=== PATIENT | female | born 1960 | race Caucasian/White ===

== ENCOUNTER → 2016-08-08 | Outpatient (CLI) | payer BC ==
[~2016-08-08] MED LIST: ACTIVELLA PO; ADVIN10/60 INH; ADVIN10050 INH; ALBUAER2 INH; ALLGDUNK; ASCA500 PO; CEPH500C PO; CYAN100020 SL; ERGO500037 PO; FLUT0.15 NAE; IBUP-103 PO; LRT5 PO; MONT1TAB3 PO; MULT-506 PO; PRED20TA PO; PRLSR20 PO; PROB1TAB16 PO; PROGEST; VNTHFA/IN INH; VTMB12UNK
--- NOTE | 2016-08-08 12:25 | MAMMOGRAPHY REPORT ---
BILATERAL DIGITAL SCREENING MAMMOGRAM TOMOSYNTHESIS WITH CAD: 08/08/2016 TECHNIQUE: Breast tomosynthesis in addition to standard 2D mammography was performed. Current study was also evaluated with a Computer Aided Detection (CAD) system. COMPARISON: Comparison is made to exams dated: 08/06/2015 mammogram, 08/04/2014 mammogram, 08/08/2009 mammogram, 08/19/2010 mammogram, 06/30/2013 mammogram, and 06/18/2012 mammogram - [facility]. BREAST COMPOSITION: The tissue of both breasts is heterogeneously dense, which may obscure small ma sses. FINDINGS: No suspicious masses, calcifications, or areas of architectural distortion are noted in e ither breast. There has been no significant interval change compared to prior exams. IMPRESSION: ACR BI-RADS CATEGORY 1: NEGATIVE There is no mammographic evidence of malignancy. A 1 year screening mammogram is recommended. The p atient will receive written notification of the results. Approximately 10% of breast cancers are not detected with mammography. A negative mammographic repor t should not delay biopsy if a clinically suggestive mass is present. Mana Suero M.D. /:08/08/2016 12:10:53 Public Relations Account Supervisor: Madison SMALLWOOD)(Lisa), [facility] letter sent: Normal 1/2 BI-RADS Code: ACR BI-RADS Category 1: Negative
== END | disposition home or self-care (01) ==
LOC: C.MAMM 10:23
PROVIDERS: ATTEND Obstetrics & Gynecology
DX: Z12.31 Encounter for screening mammogram for malignant neoplasm of breast (principal)

== ENCOUNTER → 2016-10-06 | Day surgery (SDC) | payer BC ==
[2016-09-26 13:21] VITALS: Ht 174.6 cm; Wt 84.1 kg
[~2016-10-06] VITALS: Ht 174.6 cm; Wt 84.1 kg
[~2016-10-06] MED LIST changes: -ACTIVELLA PO; -ALLGDUNK; -ASCA500 PO; -LRT5 PO; +MIDAZOLAM HCL 1 MG/ML 2ML VIAL ONE; -MULT-506 PO; +ONDANSETRON INJ 2 MG/ML 2 ML VIAL ONE; -PRLSR20 PO; -PROGEST; +PROPOFOL IV EMULSION 10 MG/ML 20 ML VIAL IV ONE; -VTMB12UNK
--- NOTE | 2016-10-06 12:48 | Endo History and Physical ---
History & Physical Date of Service: Oct 06, 2016. Chief Complaint: Hx of polyps Referring Physician: Dr Gutierrez History of Present Illness For colonoscopy Past Surgical History Hx Cardiac Surgery: No Hx Internal Defibrillator: No Hx Pacemaker: No Hx Abdominal Surgery: Yes (TUBAL LIGATION) Hx of Implantable Prosthesis: No Hx Post-Op Nausea and Vomiting: No Hx Cancer Surgery: No Hx Thoracic Surgery: No Hx Orthopedic: Yes (C3-4 FUSION, C3-7 FUSION (LIMITED ROM), RT ELBOW SURGERY, RT SHOULDER) Hx Urinary Tract Surgery: No Family History Colon CA Social History Smoking Status: Current Every Day Smoker Hx Substance Use: No Hx Alcohol Use: Yes ("A COUPLE BEERS/DAY") Allergies Coded Allergies: Sulfa Drugs (Verified Allergy, Mild, RASH AND DIARRHEA, 09/26/16) BEE STING (Verified Allergy, Unknown, ANAPHYLAXIS, 09/26/16) Eggs or Egg-derived Products (Verified Allergy, Unknown, GI UPSET, 09/26/16 ) Latex1 -Allergic Contact Dermititis (Verified Allergy, Unknown, RASH, HIVES, ITCHING, 09/26/16) Lidocaine (Verified Allergy, Unknown, ANAPHYLAXIS, 09/26/16) Opioid Analgesics (Verified Allergy, Unknown, "SENDS ME INTO A NASTY LAND ", 09/26/16) Penicillins (Verified Allergy, Unknown, VAGINAL YEAST INFECTION, 09/26/16) Venlafaxine (Verified Allergy, Unknown, DIARRHEA, 09/26/16) Codeine (Verified Adverse Reaction, Mild, N/V, 09/26/16) Uncoded Allergies: MELONS (Allergy, Unknown, MOUTH INFLAMMATION AND ANAPHYLAXIS, 09/26/16) PEPPERCORN (Allergy, Unknown, ANAPHYLAXIS AND GUMS BLEED, 09/26/16) RAW VEGGIES (Allergy, Unknown, MOUTH INFLAMMATION AND ANAPHYLAXIS, 09/26/16) Current Medications Reported Home Medications Medications Dose Route/Sig Max Daily Dose Days Date Category Singulair (Montelukast Sodium) 10 Mg Tab 10 Mg PO DAILY PRN 09/26/16 Reported Advil (Ibuprofen) 200 Mg Tab 400-600 Mg PO Q6H PRN 09/26/16 Reported Flonase Allergy Relief (Fluticasone Propionate (Nasal)) 50 Mcg/Act Spr 2 [place] EZEKIEL DAILY PRN 09/26/16 Reported Vitamin B12 (Cyanocobalamin) 1,000 Mcg Tab 2 Mg SL BID 09/26/16 Reported Vitamin D 40915 Unit (Ergocalciferol) 50,000 Unit Cap 50,000 Unit PO [id number] 09/26/16 Reported Probiotic (Probiotic Product) 1 Tab Tab 1 Tab PO TID 09/26/16 Reported Ventolin (Albuterol) Inh 2 Puffs INH Q4-6H PRN 07/07/08 Reported Advair Diskus 100/50 Mcg * (Salmeterol Xinafoate/Fluticasone) Aerp 1 Puff INH QAM 07/07/08 Reported Vital Signs Weight (Kilograms): 84.09 Height (Feet): 5 Height (Inches): 8.75 Physical Exam General Appearance: WD/WN, + pertinent finding (Scar on the neck) Respiratory/Chest: Respiratory effort: no dyspnea Cardiovascular: Heart Auscultation: RRR Abdomen: Inspection & Palpation: soft (Hx of polyps for colonoscopy)
[2016-10-06 13:04] VITALS: TEMP 37.3
--- NOTE | 2016-10-06 13:28 | Discharge Instructions ---
Endoscopy Patient Instructions Date / Procedure(s) Performed Oct 06, 2016. Colonoscopy Allergy Information Coded Allergies: Sulfa Drugs (Verified Allergy, Mild, RASH AND DIARRHEA, 09/26/16) BEE STING (Verified Allergy, Unknown, ANAPHYLAXIS, 09/26/16) Eggs or Egg-derived Products (Verified Allergy, Unknown, GI UPSET, 09/26/16 ) Latex1 -Allergic Contact Dermititis (Verified Allergy, Unknown, RASH, HIVES, ITCHING, 09/26/16) Lidocaine (Verified Allergy, Unknown, ANAPHYLAXIS, 09/26/16) Opioid Analgesics (Verified Allergy, Unknown, "SENDS ME INTO A NASTY LAND ", 09/26/16) Penicillins (Verified Allergy, Unknown, VAGINAL YEAST INFECTION, 09/26/16) Venlafaxine (Verified Allergy, Unknown, DIARRHEA, 09/26/16) Codeine (Verified Adverse Reaction, Mild, N/V, 09/26/16) Uncoded Allergies: MELONS (Allergy, Unknown, MOUTH INFLAMMATION AND ANAPHYLAXIS, 09/26/16) PEPPERCORN (Allergy, Unknown, ANAPHYLAXIS AND GUMS BLEED, 09/26/16) RAW VEGGIES (Allergy, Unknown, MOUTH INFLAMMATION AND ANAPHYLAXIS, 09/26/16) Discharge Date / Findings Oct 06, 2016. Hemorrhoids Medication Instructions Restart Stopped Medication(s): resume meds Reported Home Medications Medications Dose Route/Sig Max Daily Dose Days Date Category Singulair (Montelukast Sodium) 10 Mg Tab 10 Mg PO DAILY PRN 09/26/16 Reported Advil (Ibuprofen) 200 Mg Tab 400-600 Mg PO Q6H PRN 09/26/16 Reported Flonase Allergy Relief (Fluticasone Propionate (Nasal)) 50 Mcg/Act Spr 2 [place] EZEKIEL DAILY PRN 09/26/16 Reported Vitamin B12 (Cyanocobalamin) 1,000 Mcg Tab 2 Mg SL BID 09/26/16 Reported Vitamin D 37407 Unit (Ergocalciferol) 50,000 Unit Cap 50,000 Unit PO [id number] 09/26/16 Reported Probiotic (Probiotic Product) 1 Tab Tab 1 Tab PO TID 09/26/16 Reported Ventolin (Albuterol) Inh 2 Puffs INH Q4-6H PRN 07/07/08 Reported Advair Diskus 100/50 Mcg * (Salmeterol Xinafoate/Fluticasone) Aerp 1 Puff INH QAM 07/07/08 Reported Provider Instructions Activity Restrictions - No exercising or heavy lifting for 24 hours. - Do not drink alcohol the day of the procedure. - Do not drive a car or operate machinery until the day after the procedure. - Do not make any important decisions or sign important papers in 24 hours after the procedure. Following Day: - Return to full activity which may include returning to work/school. Diet Start your diet with liquids and light foods (jello, soup, juice, toast). Then eat your usual diet if not nauseated. Treatment For Common After Affects For mild abdominal pain, bloating, or excessive gas: - Rest - Eat lightly - Lie on right side Follow-Up Information Follow-up with Jeff as scheduled Anesthesia Information What You Should Know You have had a procedure that required some medicine to reduce anxiety and discomfort. This treatment is called moderate sedation. After receiving the treatment, you may be sleepy, but you will be able to breathe on your own. The effects of the treatment may last for several hours. Follow these instructions along with Activity/Diet recommendations noted above: * Do NOT do anything where dizziness or clumsiness would be dangerous. * Rest quietly at home today, then you can be up and about tomorrow. * Have a responsible person stay with you the rest of today. * You may have had an I.V. today. If so, you may take the dressing off later today. Recommendations Call your doctor if: * Trouble breathing * Continuous vomiting for more than 24 hours * Temperature above 101 degrees * Severe abdominal pain or bloating * Pain not relieved by pain medicine ordered * There is increased drainage or redness from any incision * A large amount of rectal bleeding greater than 2-3 tablespoons. (If you had a polyp/s removed or have hemorrhoids, a small amount of blood - from the rectum is to be expected.) * You have any unanswered questions or concerns. IN THE EVENT OF A SERIOUS EMERGENCY, GO TO THE NEAREST EMERGENCY ROOM Your discharge instructions were prepared by provider Zev Kelley. Patient Instructions Signature Page Yazmin Irvin Patient (or Guardian) Signature/Date: I have read and understand the instructions given to me by my caregivers. Caregiver/RN/Doctor Signature/Date: The above-named patient and/or guardian has received patient instructions on this date. + Original Patient Signature Page (only) stays with chart. Please make copy for patient.
--- NOTE | 2016-10-06 13:43 | GI REPORT ---
Procedure Date: 10/06/2016 12:51 PM Procedure: Colonoscopy Indications: Personal history of colonic polyps Medicines: Midazolam 2 mg IV, Zofran 4 mg IV, Propofol total dose 150 mg IV Complications: No immediate complications. Estimated Blood Loss: Estimated blood loss: none. Procedure: Pre-Anesthesia Assessment: - Prior to the procedure, a History and Physical was performed, and patient medications, allergies and sensitivities were reviewed. The patient's tolerance of previous anesthesia was reviewed. - The risks and benefits of the procedure and the sedation options and risks were discussed with the patient. All questions were answered and informed consent was obtained. After I obtained informed consent, the scope was passed under direct vision. Throughout the procedure, the patient's blood pressure, pulse, and oxygen saturations were monitored continuously. The Scope was introduced through the anus and advanced to the cecum, identified by appendiceal orifice and ileocecal valve. The colonoscopy was performed without difficulty. The patient tolerated the procedure well. The quality of the bowel preparation was excellent. Findings: Non-bleeding internal hemorrhoids were found during endoscopy. The hemorrhoids were mild. Impression: - Non-bleeding internal hemorrhoids. - No specimens collected. Recommendation: - Discharge patient to home (ambulatory). - Continue present medications. - Repeat colonoscopy in 5 years for surveillance. - Return to primary care physician PRN. Zev Kelley M.D. Zev Kelley MD 10/06/2016 1:43:32 PM This report has been signed electronically. Note Initiated On: 10/06/2016 12:51 PM I attest to the content of the Intraoperative Record and orders documented therein, exceptions below
[2016-10-06 14:01] VITALS: BP 113/87; PULSE 72; O2SAT 96
--- NOTE | 2016-10-06 14:05 | Anesthesiology Progress Note ---
Anesthesia Post Op Note Date & Time Oct 06, 2016 at 14:05 Vital Signs Pain Intensity: 0 Vital Signs Past 12 Hours Date Time Temp Pulse Resp B/P Pulse Ox O2 Delivery O2 Flow Rate FiO2 10/06/16 14:01 72 20 113/87 96 Room Air 10/06/16 13:46 74 16 108/68 97 Room Air 10/06/16 13:31 71 16 93/51 96 Room Air 10/06/16 13:04 37.3 75 20 107/68 94 Room Air Notes Mental Status: alert / awake / arousable, participated in evaluation Pt Amnestic to Procedure: Yes Nausea / Vomiting: adequately controlled Pain: adequately controlled Airway Patency, RR, SpO2: stable & adequate BP & HR: stable & adequate Hydration State: stable & adequate Anesthetic Complications: no major complications apparent
== END | disposition home or self-care (01) ==
LOC: C.GI 12:28
PROVIDERS: ATTEND Internal Medicine Gastroenterology
DX: Z86.010 Personal history of colon polyps (principal); K64.8 Other hemorrhoids; J45.909 Unspecified asthma, uncomplicated; Z98.51 Tubal ligation status; Z98.890 Other specified postprocedural states; Z80.0 Family history of malignant neoplasm of digestive organs; F17.200 Nicotine dependence, unspecified, uncomplicated; Z88.2 Allergy status to sulfonamides; Z91.040 Latex allergy status; Z88.0 Allergy status to penicillin; Z88.5 Allergy status to narcotic agent; Z91.012 Allergy to eggs; Z91.018 Allergy to other foods

== ENCOUNTER → 2017-02-16 | Outpatient (CLI) | payer BC ==
[~2017-02-16] MED LIST changes: -MIDAZOLAM HCL 1 MG/ML 2ML VIAL ONE; -ONDANSETRON INJ 2 MG/ML 2 ML VIAL ONE; -PROPOFOL IV EMULSION 10 MG/ML 20 ML VIAL IV ONE
== END | disposition home or self-care (01) ==
LOC: C.LAB1850 08:43
PROVIDERS: ATTEND Internal Medicine Endocrinology, Diabetes & Metabolism
DX: E04.2 Nontoxic multinodular goiter (principal); E55.9 Vitamin D deficiency, unspecified; K21.9 Gastro-esophageal reflux disease without esophagitis; F17.200 Nicotine dependence, unspecified, uncomplicated

== ENCOUNTER 2017-04-12 14:51 | Emergency (ER) | payer BC ==
[~2017-04-12] VITALS: Ht 175.3 cm; Wt 84.0 kg
[~2017-04-12 14:51] MED LIST changes: -ADVIN10050 INH; -CEPH500C PO; -PRED20TA PO; -VNTHFA/IN INH
[2017-04-12 15:02] VITALS: BP 127/90; PULSE 91; TEMP 37; O2SAT 98; Ht 175.3 cm; Wt 84.0 kg
[2017-04-12] MEDS ORDERED: DEXAMETHASONE SOD INJ 10 MG/ML VIAL IM ONE (15:30)
[2017-04-12] MEDS ORDERED: PRED20TA PO (15:35)
[2017-04-12] MEDS ORDERED: CEPH500C PO (15:35)
--- NOTE | 2017-04-12 15:39 | EMERGENCY ROOM VISIT NOTE ---
History First contact with patient: 15:10 Chief Complaint: RASH Stated Complaint: POISON SUNITHA History of Present Illness The patient is a 56 year old female who presents to the Emergency Room with complaints of allergic reaction. The patient was visiting her mother in [place]. She states that her mother's cat was out side and got into poison sunitha. She states that the cat rubbed against her. The patient states she is very sensitive to poison sunitha. The patient states that she has had a rash and swelling since then. She reports crusting lesions to her face, arms and legs. She has been scrubbing off the scabs. She states she also has redness and tearing and a foreign body sensation in the right eye. She has been using over- the-counter allergy eyedrops. The patient does have an EpiPen but did not feel she needed to use it at any point. She does have a sore throat and trouble swallowing but states this is baseline for her. The patient denies any chest pain or trouble breathing. She denies any wheezing. She denies any vomiting. Review of Systems A 10 system review of systems was completed with positives and pertinent negatives listed in the HPI. Past Medical/Surgical History Medical Problems: (1) Asthma (2) Bacterial pneumonia Social History Smoking Status: Never Smoker Alcohol Use: occasionally Marital Status: Housing Status: lives with family Occupation Status: employed Current/Historical Medications Scheduled Cephalexin Monohydrate (Keflex), 500 MG PO QID Cyanocobalamin (Vitamin B12), 2 MG SL BID Ergocalciferol (Vitamin D 76477 Unit), 50,000 UNIT PO [id number] Fluticasone Prop/Salmeterol (Advair Diskus 100/50 Mcg *), 1 PUFF INH QAM Prednisone (Prednisone), 0 PO DAILY Probiotic Product (Probiotic), 1 TAB PO TID Scheduled PRN Albuterol (Ventolin), 2 PUFFS INH Q4-6H PRN for SOB/Wheezing Fluticasone Propionate (Nasal) (Flonase Allergy Relief), 2 SPRAY EZEKIEL DAILY PRN for ALLERGIES Ibuprofen Tab (Advil), 400-600 MG PO Q6H PRN for Pain Montelukast Sodium (Singulair), 10 MG PO DAILY PRN for ALLERGIES Physical Exam Vital Signs Date Time Temp Pulse Resp B/P (MAP) Pulse Ox O2 Delivery O2 Flow Rate FiO2 04/12/17 15:02 37.0 91 18 127/90 98 Room Air Physical Exam VITALS: Vitals are noted on the nurse's note and reviewed by myself. Vital signs stable. GENERAL: This is a 56-year-old female, in no acute distress, nondiaphoretic, well-developed well-nourished. SKIN: There are honey-colored crusted lesions over the chin. There is some in the hairline and the right ear. There are linear vesicular lesions on both arms and a few spots on the legs. There is no tenting of the skin. Capillary reflex less than 2 seconds. HEAD: Normocephalic atraumatic. EARS: External auditory canals clear, tympanic membranes pearly garsia without erythema or effusion bilaterally. EYES: Pupils equal round and reactive to light and accommodation. There is injection and chemosis noted in the right eye. There are no foreign bodies noted. There is no uptake with fluorescein stain. Extraocular movements intact. NOSE: Patent, turbinates without inflammation or discharge. MOUTH: Mucous membranes moist. Tonsils are not enlarged. Pharynx without erythema or exudate. Uvula midline. Airway patent. Tongue does not deviate. NECK: Supple without nuchal rigidity. No lymphadenopathy. No thyromegaly. Cervical spine is nontender. No JVD. HEART: Regular rate and rhythm without murmurs gallops or rubs. LUNGS: Clear to auscultation bilaterally without wheezes, rales or rhonchi. No retractions or accessory muscle use. MUSCULOSKELETAL: No muscle atrophy, erythema, or edema noted. Full range of motion in all extremities. Normal gait. Strength 5/5 throughout. NEURO: Patient was alert and oriented to person place and time. No focal neurological deficits. Medical Decision & Procedures Medications Administered Medications (Trade) Dose Ordered Sig/Jimy Route Start Time Stop Time Status Last Admin Dose Admin Dexamethasone Sodium Phosphate (Decadron Inj) 10 mg NOW ONCE IM 04/12/17 15:30 04/12/17 15:31 DC 04/12/17 15:32 10 MG ED Course The patient was seen and examined. Previous visits were reviewed. The patient appears to have allergic reaction. She does have lesions suggestive of poison sunitha on the bilateral arms and legs. She also has areas on the jaw and chin as well as the hairline. The patient does have injection and chemosis of the right eye. The patient likely has a reaction to poison sunitha. The patient has been scrubbing of the lesions to remove the scabs. I do believe she has a secondary bacterial infection. The patient was given 10 mg IM Decadron and placed on prednisone. She should try antihistamines. She could continue her eyedrops and steroid cream at home. The patient will be placed on Keflex. She should recheck with her family doctor in 24-48 hours if no improvement. She should return to the ER sooner with any worsening symptoms. Medical Decision The differential diagnosis includes impetigo, zoster, allergic reaction, corneal foreign body, corneal abrasion, among others Medication Reconcilliation Current Medication List: was personally reviewed by me Blood Pressure Screening Patient's blood pressure: Normal blood pressure Blood pressure disposition: Did not require urgent referral Impression Primary Impression: Rhus dermatitis Additional Impression: Impetigo Departure Information Dispostion Home / Self-Care Condition GOOD Prescriptions Cephalexin Monohydrate (Keflex) 500 Mg Cap 500 MG PO QID for 7 Days, #28 CAP Prov: Radha Macisa PA-C 04/12/17 Prednisone (Prednisone) 20 Mg Tab 0 PO DAILY, #18 TAB 3 DAILY FOR 3 DAYS, THEN 2 DAILY FOR 3 DAYS, THEN 1 DAILY FOR 3 DAYS. Prov: Radha Macias PA-C 04/12/17 Referrals RV. Simon MD (PCP) Patient Instructions ED Dermatitis Poison Sunitha, Impetigo, My [facility] Additional Instructions Keflex as prescribed, until finished to treat potential secondary bacterial infection Prednisone as prescribed until finished Continue the eye drops Return with any worsening rash, trouble breathing Otherwise, recheck with your family doctor in 24-48 hours Problem Qualifiers
[2017-04-12] MEDS ORDERED: VNTHFA/IN INH (16:15)
[2017-04-12] MEDS ORDERED: ADVIN10050 INH (16:17)
== END 2017-04-12 15:54 | disposition home or self-care (01) ==
LOC: C.EDB 14:52 → C.EDD 15:54
DX: L23.7 Allergic contact dermatitis due to plants, except food (principal); L01.00 Impetigo, unspecified; J45.909 Unspecified asthma, uncomplicated; Z79.899 Other long term (current) drug therapy

== ENCOUNTER → 2017-05-28 | Outpatient (CLI) | payer BC ==
[~2017-05-28] MED LIST changes: -ADVIN10/60 INH; +ADVIN10050 INH; -ALBUAER2 INH; +PRED20TA PO; -PROB1TAB16 PO; +VNTHFA/IN INH
== END | disposition home or self-care (01) ==
LOC: C.PAPS 17:48
PROVIDERS: ATTEND Obstetrics & Gynecology
DX: Z01.419 Encounter for gynecological examination (general) (routine) without abnormal findings (principal)

== ENCOUNTER → 2017-06-22 | Outpatient (CLI) | payer BC ==
--- NOTE | 2017-06-22 11:49 | DIAGNOSTIC IMAGING REPORT ---
L LOWER EXT JOINT WITHOUT CLINICAL HISTORY: 56 years-old Female presenting with LEFT KNEE PAIN, left lateral knee pain, painful when bending, worsening over one month, no history of injury. TECHNIQUE: Multisequence, multiplanar MR imaging of the left knee was performed without the use of intravenous contrast. IV contrast: None. COMPARISON: Correlation made to plain radiographs from 06/10/2017.. FINDINGS: Localizer images: Unremarkable. Focal stippled T2 hyperintense, T1 hypointense subcentimeter lesion centered in the medullary space of the medial tibial plateau. Additional abnormal bone marrow signal is evident along the left medial femoral epicondyle at the origin of the medial collateral ligament, which demonstrates cystic change, possibly degenerative in etiology. Irregularity of the anterior weightbearing portion of the medial femoral condyle with abnormal signal intensity extending over 50% thickness of the cartilage consistent with grade 3 injury. Increased signal intensity in the posterior weightbearing surface of the medial femoral condyle also noted (series 4 image 19). There is also subtle fissuring of the median prominence of the patellar articular cartilage most pronounced superiorly with trace subjacent bony edema (series 4 image 13). Remaining articular surfaces intact. Primarily horizontally oriented linear T2 hyperintense signal intensity consistent with tear in the posterior horn of the lateral meniscus which approaches the tibial articular surface. There may be partial disruption of the meniscocapsular ligaments as expansion of the joint space is suggested along the lateral aspect of the joint, however, no extrusion of the meniscus. Intrasubstance increased signal intensity within the anterior horn of the lateral meniscus likely degenerative. Medial meniscus intact. Anterior and posterior cruciate ligaments intact. Medial collateral ligament intact though minimal thickening of the ligament in the proximal to midportion may be present. Lateral collateral ligament complex including the biceps femoris tendon, fibular collateral ligament, popliteus tendon, and iliotibial band intact. However, increased signal intensity within the origin of the fibular collateral ligament possibly degenerative. Quadriceps and patellar tendons intact. Small knee joint effusion with a prominent popliteal cyst. Normal muscle bulk and signal intensity of the musculature. IMPRESSION: 1. Complex tear of the posterior horn of the lateral meniscus with possible partial disruption of meniscocapsular ligaments. 2. Multifocal articular cartilage injury most prominently in the medial compartment with minimal changes in the patellofemoral compartment as detailed above. 3. Focal stippled T2 hyperintense lesion in the medullary space of the medial tibial plateau may represent a chondroid lesion. 4. Degenerative changes of the origin of the fibular collateral ligament. 5. Small knee joint effusion with a prominent popliteal cyst. Electronically signed by: Jerry Gardner M.D. 06/22/2017 11:48 AM Dictated Date/Time: 06/22/2017 11:37 AM
== END | disposition home or self-care (01) ==
LOC: C.MRIBC 10:35
PROVIDERS: ATTEND Orthopaedic Surgery
DX: M25.562 Pain in left knee (principal)

== ENCOUNTER → 2017-07-10 | Outpatient (CLI) | payer BC ==
[~2017-07-10] MED LIST changes: -PRED20TA PO; +TRAM-10 PO
[2017-07-10 17:40] LABS: BASO % 0.4 %; BASO ABS # 0.03 K/uL (0-0.2); EOS % 2.8 %; EOS ABS # 0.21 K/uL (0-0.5); HEMOGLOBIN 15.4 g/dL (12.0-16.0); IG# 0.01 K/uL (0.00-0.02); LYMPH % 36.7 %; LYMPH ABS # 2.72 K/uL (1.2-3.4); MEAN CELL VOLUME 98.3 fL (80-100); MEAN CORPUSCULAR HEMOGLOBIN 32.9 pg (25-34); MEAN CORPUSCULAR HGB CONC 33.5 g/dl (32-36); MEAN PLATELET VOLUME 9.7 fL (7.4-10.4); MONO % 5.7 %; MONO ABS # 0.42 K/uL (0.11-0.59); NEUT % 54.3 %; NEUT ABS # 4.03 K/uL (1.4-6.5); PLATELET COUNT 277 K/uL (130-400); RED CELL DISTRIBUTION WIDTH CV 12.9 % (11.5-14.5); RED CELL DISTRIBUTION WIDTH SD 45.8 fL (36.4-46.3); WHITE BLOOD COUNT 7.42 K/uL (4.8-10.8)
[2017-07-10 18:05] LABS: POTASSIUM 3.5 mmol/L (3.5-5.1)
== END | disposition home or self-care (01) ==
LOC: C.CPL 16:06
PROVIDERS: ATTEND Orthopaedic Surgery
DX: Z01.818 Encounter for other preprocedural examination (principal); S83.282A Other tear of lateral meniscus, current injury, left knee, initial encounter; X58.XXXA Exposure to other specified factors, initial encounter

== ENCOUNTER → 2017-07-21 | Day surgery (SDC) | payer BC ==
[2017-07-01 12:23] VITALS: Ht 175.3 cm; Wt 81.8 kg
[~2017-07-21] VITALS: Ht 175.3 cm; Wt 81.8 kg
[~2017-07-21] MED LIST changes: +ACETAMINOPHEN 325 MG TAB PO PRN; +ATROPINE SULFATE 0.1 MG/ML 5ML SYR IV PRN; +BUPIVACAINE 0.5 % 5 MG/1 ML PF 10ML VIAL ONE; +CEFAZOLIN 2000MG IV PUSH 10 ML IV SCH; +DEXAMETHASONE SOD INJ 4 MG/ML VIAL ONE; +EpINEphrine INJ 1MG/ML AMP 1 MG/ML AMP ONE; +FENTANYL CITRATE INJ 50 MCG/1 ML 2 ML VIAL IV PRN; +FENTANYL CITRATE INJ 50 MCG/1 ML 2 ML VIAL ONE; +KETOROLAC TROMETHAMINE 30 MG/ML VIAL IV. PRN; +KETOROLAC TROMETHAMINE 30 MG/ML VIAL ONE; +LACTATED RINGER'S 1000ML 1,000 ML IV SCH; +LIDOCAINE HCL 2% 2 ML VIAL (20MG/ML) ONE; +MIDAZOLAM HCL 1 MG/ML 2ML VIAL ONE; +ONDANSETRON INJ 2 MG/ML 2 ML VIAL IV PRN; +ONDANSETRON INJ 2 MG/ML 2 ML VIAL ONE; +PROPOFOL IV EMULSION 10 MG/ML 20 ML VIAL IV ONE; +ROPIVACAINE 0.5% 5 MG/ML 30 ML VIAL ONE; +SODIUM CHLORIDE 0.9% 1000ML 1,000 ML IV SCH; +TRAMADOL HCL 50 MG TAB PO PRN
--- NOTE | 2017-07-21 08:50 | History & Physical Bridge - SC ---
H&P Re-Evaluation Bridge Note: I have examined the patient, reviewed the History & Physical and in the interval since the performance of the History & Physical I have noted the following changes of clinical significance: No changes noted
--- NOTE | 2017-07-21 10:21 | [facility] Post Operative Brief Note ---
Immediate Operative Summary Operative Date Jul 21, 2017. Pre-Operative Diagnosis Left Knee Lateral Meniscus Tear Post-Operative Diagnosis same as pre op Procedure(s) Performed PARTIAL LATERAL MENISECTOMY Surgeon Dr Martino Software Applications Architect Surgeon(s) RANJEET Morocho Estimated Blood Loss 0 Findings ABOVE Specimens none Anesthesia LMA Complication(s) None Disposition Recovery Room / PACU
--- NOTE | 2017-07-21 10:31 | Discharge Instructions-SurgCtr ---
Discharge Instructions Date of Service Jul 21, 2017. Visit Reason for Visit: Left Knee Lateral Meniscus Tear Discharge Discharge Diagnosis / Problem: SAME ABOVE Discharge Goals Goal(s): Decrease discomfort, Improve function Activity Recommendations Activity Limitations: as noted below Lifting Limitations: gradually increase as tolerated Exercise/Sports Limitations: until after follow-up appointment Shower/Bathe: tomorrow Weightbearing Status: Left weightbearing (as tolerated) Anesthesia . Post Anesthesia Instructions: If you have had General Anesthesia or IV Sedation: * Do not drive today. * Resume driving when surgeon permits. * Do not make important decisions or sign legal documents today. * Call surgeon for: 1. Temperature elevations greater than 101 degrees F. 2. Uncontrollable pain. 3. Excessive bleeding. 4. Persistent nausea and vomiting. 5. Medication intolerance (nausea, vomiting or rash). * For nausea and vomiting use only clear liquids such as: tea, soda, bouillon until nausea subsides, then gradually increase diet as tolerated. * If you have any concerns or questions, call your surgeon's office. If physician is unavailable and it is an emergency, call 911 or go to the nearest emergency room. . Instructions / Follow-Up Instructions / Follow-Up MEDICATIONS: * Resume previous medications unless instructed otherwise by your surgeon. * Always take pain medication on a full stomach or with food to avoid upset stomach. * Do not drink alcohol or drive while taking narcotics. * Ibuprofen or Tylenol may be taken if narcotic not needed. SPECIAL CARE INSTRUCTIONS: __ None _X_ Keep extremity elevated and iced x 48 hours; apply ice 20-30 minutes 8-10 times/day. May remove at night. __ Crutches __ May discard when able __ Brace/Post-op shoe __ 24 hrs/day __ Remove at night _X_ Dressing __ Maintain until seen in office, may shower with plastic over site _X_ Remove dressings in 24-48 hours and then may shower _X_ Cover incisions with band-aids after showering __ Do not remove steri-strips Call physician if chills or temperature rises above 102 degrees or pain unrelieved by prescribed pain medications. Office [phone] Diet Recommendations Home Diet: resume previous diet Procedures Procedures Performed: PARTIAL LATERAL MENISECTOMY Pending Studies Studies pending at discharge: no Medical Emergencies . Who to Call and When: Medical Emergencies: If at any time you feel your situation is an emergency, please call 911 immediately. . Non-Emergent Contact Non-Emergency issues call your: Primary Care Provider . . "Provider Documentation" section prepared by Wood Weinberg. .
--- NOTE | 2017-07-21 10:40 | OPERATIVE REPORT ---
DATE OF OPERATION: 07/21/2017 PREOPERATIVE DIAGNOSIS: Lateral meniscus tear left knee. POSTOPERATIVE DIAGNOSIS: Complex tear lateral meniscus, left knee. PROCEDURE: Left knee arthroscopy, partial lateral meniscectomy. SURGEON: Jerry Martino MD. SALES REPRESENTATIVE LIVESTOCK: Wood Weinberg PA-C. ANESTHESIOLOGIST: Alex Pearce MD. ANESTHESIA: LMA. DRAINS: None. COMPLICATIONS: None. CONDITION: The patient tolerated the procedure well and returned to recovery in apparent satisfactory condition. INDICATIONS FOR SURGERY: Yazmin is a 56-year-old female who has had increasing pain in left knee consistent with lateral meniscus tear. Based on history, examination and MRI, elected to go ahead and proceed with surgery. Procedure, expected outcome, side effects, and risks were all explained in detail. DESCRIPTION OF PROCEDURE: The patient was taken to the OR at which time she was placed supine on the operating table, put to sleep by the anesthesia department. Examination of the left knee was performed. Ligamentous kent it was stable. We went ahead and prepped and draped in usual sterile fashion. Began arthroscopic examination in the anteromedial and anterolateral portals. We inspected the medial compartment and found to be fine. The ACL was fine. The patellofemoral joint was in good shape. Lateral compartment had a complex tear at the posterior lateral meniscus. There were some DJD changes of the lateral tibial plateau. We came in with upbiting scissors and full radius resector and trimmed it back to a stable rim. She had a long horizontal tear. I trimmed it back toward upper and lower portion to avoid it. I did not remove the whole part as I thought it was stable. It would basically give her protection and hopefully get in together. Light debridement was done to the tibial plateau. The knee then was copiously irrigated. All cannulas were removed. Portals were closed with 4-0 nylon sutures. 30 mL of ropivacaine, 1 mL epinephrine and 10 mg of Toradol was placed in the knee joint. Placed a sterile dressing of Xeroform, 4 x 4, ABD, Sof-Rol, and Nikko bandage and returned back to recovery room in apparent satisfactory condition. SURGICAL FINDINGS: Included a complex tear to the posterior horn of the lateral meniscus. I attest to the content of the Intraoperative Record and any orders documented therein. Any exception s are noted below.
[2017-07-21 11:20] VITALS: TEMP 36.4
[2017-07-21 11:44] VITALS: BP 118/82; PULSE 65; O2SAT 99
--- NOTE | 2017-07-21 11:58 | Anesthesia Progress Nt - [facility] ---
Anesthesia Post Op Note Date & Time Jul 21, 2017 at 11:58 Vital Signs Pain Intensity: 2 Vital Signs Past 12 Hours Date Time Temp Pulse Resp B/P (MAP) Pulse Ox O2 Delivery O2 Flow Rate FiO2 07/21/17 11:44 65 12 118/82 (94) 99 Room Air 07/21/17 11:20 36.4 73 16 118/77 (91) 98 Room Air 07/21/17 11:06 129/80 07/21/17 11:05 66 20 07/21/17 11:05 36.7 66 20 129/80 100 Room Air 07/21/17 11:05 65 20 97 07/21/17 11:01 130/79 07/21/17 11:00 59 14 07/21/17 11:00 59 14 100 07/21/17 10:57 116/82 07/21/17 10:55 66 14 98 07/21/17 10:55 69 14 07/21/17 10:50 66 22 07/21/17 10:50 66 22 100 07/21/17 10:46 115/74 07/21/17 10:45 68 24 07/21/17 10:45 79 24 100 07/21/17 10:42 123/89 07/21/17 10:40 74 19 100 07/21/17 10:40 73 19 07/21/17 10:37 129/75 07/21/17 10:35 74 23 99 07/21/17 10:35 73 23 07/21/17 10:30 69 23 07/21/17 10:30 69 23 120/82 99 07/21/17 10:30 36.3 70 12 120/82 98 Mask 6 07/21/17 08:30 36.6 69 16 105/68 (80) 96 Room Air Notes Mental Status: alert / awake / arousable, participated in evaluation Pt Amnestic to Procedure: Yes Nausea / Vomiting: adequately controlled Pain: adequately controlled Airway Patency, RR, SpO2: stable & adequate BP & HR: stable & adequate Hydration State: stable & adequate Anesthetic Complications: no major complications apparent
== END | disposition home or self-care (01) ==
LOC: X.SURG 08:02
PROVIDERS: ATTEND Orthopaedic Surgery
DX: M23.252 Derangement of posterior horn of lateral meniscus due to old tear or injury, left knee (principal); K21.9 Gastro-esophageal reflux disease without esophagitis; F17.200 Nicotine dependence, unspecified, uncomplicated

== ENCOUNTER → 2017-08-10 | Outpatient (CLI) | payer BC ==
[~2017-08-10] MED LIST changes: -ACETAMINOPHEN 325 MG TAB PO PRN; -ATROPINE SULFATE 0.1 MG/ML 5ML SYR IV PRN; -BUPIVACAINE 0.5 % 5 MG/1 ML PF 10ML VIAL ONE; -CEFAZOLIN 2000MG IV PUSH 10 ML IV SCH; -DEXAMETHASONE SOD INJ 4 MG/ML VIAL ONE; -EpINEphrine INJ 1MG/ML AMP 1 MG/ML AMP ONE; -FENTANYL CITRATE INJ 50 MCG/1 ML 2 ML VIAL IV PRN; -FENTANYL CITRATE INJ 50 MCG/1 ML 2 ML VIAL ONE; -KETOROLAC TROMETHAMINE 30 MG/ML VIAL IV. PRN; -KETOROLAC TROMETHAMINE 30 MG/ML VIAL ONE; -LACTATED RINGER'S 1000ML 1,000 ML IV SCH; -LIDOCAINE HCL 2% 2 ML VIAL (20MG/ML) ONE; -MIDAZOLAM HCL 1 MG/ML 2ML VIAL ONE; -ONDANSETRON INJ 2 MG/ML 2 ML VIAL IV PRN; -ONDANSETRON INJ 2 MG/ML 2 ML VIAL ONE; -PROPOFOL IV EMULSION 10 MG/ML 20 ML VIAL IV ONE; -ROPIVACAINE 0.5% 5 MG/ML 30 ML VIAL ONE; -SODIUM CHLORIDE 0.9% 1000ML 1,000 ML IV SCH; -TRAMADOL HCL 50 MG TAB PO PRN
--- NOTE | 2017-08-10 15:51 | MAMMOGRAPHY REPORT ---
BILATERAL DIGITAL SCREENING MAMMOGRAM TOMOSYNTHESIS WITH CAD: 08/10/2017 CLINICAL HISTORY: Routine screening. Patient has no complaints. TECHNIQUE: Breast tomosynthesis in addition to standard 2D mammography was performed. Current study was also evaluated with a Computer Aided Detection (CAD) system. COMPARISON: Comparison is made to exams dated: 08/08/2016 mammogram, 08/06/2015 mammogram, 08/04/2014 m ammogram, 06/30/2013 mammogram, 06/18/2012 mammogram, and 06/18/2012 ultrasound - [facility]. BREAST COMPOSITION: The tissue of both breasts is heterogeneously dense, which may obscure small mas ses. FINDINGS: No suspicious masses, calcifications, or areas of architectural distortion are noted in ei ther breast. There has been no significant interval change compared to prior exams. IMPRESSION: ACR BI-RADS CATEGORY 1: NEGATIVE There is no mammographic evidence of malignancy. A 1 year screening mammogram is recommended. The pa tient will receive written notification of the results. Approximately 10% of breast cancers are not detected with mammography. A negative mammographic report should not delay biopsy if a clinically suggestive mass is present. Mana Suero M.D. /:08/10/2017 12:02:39 Assistant Spa Director: Bridgette Medina, [facility] letter sent: Normal 1/2 BI-RADS Code: ACR BI-RADS Category 1: Negative
== END | disposition home or self-care (01) ==
LOC: C.MAMM 09:51
PROVIDERS: ATTEND Internal Medicine
DX: Z12.31 Encounter for screening mammogram for malignant neoplasm of breast (principal)

== ENCOUNTER → 2017-11-20 | Outpatient (CLI) | payer BC ==
--- NOTE | 2017-11-20 14:14 | DIAGNOSTIC IMAGING REPORT ---
L VENOUS DOPP LOWER EXT UNILAT CLINICAL HISTORY: 56 years-old Female presenting with LEFT LE PAIN/SWELLING, R/O DVT. TECHNIQUE: Real-time grayscale and color and spectral Doppler ultrasound imaging of the veins of the left lower extremity was performed. Compression and augmentation were also utilized. COMPARISON: None. FINDINGS: Left: Common femoral vein: Patent. Greater saphenous vein: Patent. Deep femoral vein: Patent. Femoral vein: Patent. Popliteal vein: Patent. Calf veins: Patent. Other: 3.0 x 6.5 x 2.1 cm fluid collection in the popliteal fossa most consistent with popliteal cyst. IMPRESSION: No evidence of deep venous thrombosis. Electronically signed by: Jerry Gardner M.D. 11/20/2017 2:13 PM Dictated Date/Time: 11/20/2017 2:12 PM
== END | disposition home or self-care (01) ==
LOC: C.ULTRBC 13:28
PROVIDERS: ATTEND Orthopaedic Surgery
DX: M79.605 Pain in left leg (principal); R60.0 Localized edema

== ENCOUNTER → 2017-11-23 | Outpatient (CLI) | payer BC ==
--- NOTE | 2017-11-23 16:10 | DIAGNOSTIC IMAGING REPORT ---
LEFT KNEE MRI HISTORY: LEFT KNEE PAIN R/O MENISCUS TEAR COMPARISON STUDY: Left knee MRI 06/22/2017. TECHNIQUE: Multiplanar multisequence MRI of the left knee was performed according to standard department protocol without the use of contrast. FINDINGS: Menisci: The medial meniscus remains intact. There is again noted an oblique tear seen within the anterior horn, body, and posterior horn of the lateral meniscus. This is not significantly changed. Ligaments: The ACL, PCL, and LCL are intact. Focal partial tear at the proximal attachment of the LCL. This has slightly progressed. There is progressive edema surrounding the proximal LCL. Extensor mechanism: The quadriceps tendon and patellar ligament are intact. Articular cartilage and bone: Near full-thickness cartilage loss seen within the central weightbearing portion of the medial femoral condyle. There is also mild cartilage thinning within the lateral compartment of the knee. There is mild cartilage fraying within the patella. Patchy areas of marrow edema seen within the proximal tibia most pronounced at the tibial spines. No fracture or dislocation. Small subchondral cystic focus within the medial femoral condyle is again noted. This measures 8 mm. Stable 1 cm benign cartilaginous lesion within the medial femoral condyle. Joint effusion: Moderate. This has increased in size. Soft tissues: Soft tissue edema within the knee has progressed. A popliteal cyst is again noted which measures 7.0 x 3.5 x 3.2 cm. IMPRESSION: 1. Moderate joint effusion which has increased in size. There is also progressive soft tissue edema throughout the left knee. 2. No change in the lateral meniscus tear as described above. 3. Partial tear involving the proximal attachment of the LCL which has progressed. 4. Popliteal cyst. 5. Cartilage abnormality is consistent with degenerative change. There is a stable 8 mm cystic focus within the medial femoral condyle. This may be due to the long-standing degenerative change. 6. Progressive marrow edema within the proximal tibia. However, no fractures identified. Electronically signed by: Trevor Bauer M.D. 11/23/2017 4:08 PM Dictated Date/Time: 11/23/2017 3:56 PM
== END | disposition home or self-care (01) ==
LOC: C.MRIBC 14:59
PROVIDERS: ATTEND Orthopaedic Surgery
DX: M25.462 Effusion, left knee (principal); S83.422A Sprain of lateral collateral ligament of left knee, initial encounter; M71.22 Synovial cyst of popliteal space [Baker], left knee; X58.XXXA Exposure to other specified factors, initial encounter

== ENCOUNTER → 2018-02-16 | Outpatient (CLI) | payer BC ==
[~2018-02-16] MED LIST changes: -TRAM-10 PO
[2018-02-16 12:58] LABS: BLOOD UREA NITROGEN 12 mg/dl (7-18); CALCIUM 8.8 mg/dl (8.5-10.1); CARBON DIOXIDE 27 mmol/L (21-32); CREATININE 0.85 mg/dl (0.60-1.20); GLUCOSE 83 mg/dl (70-99); POTASSIUM 3.9 mmol/L (3.5-5.1); SODIUM 140 mmol/L (136-145)
== END | disposition home or self-care (01) ==
LOC: C.LAB1850 10:38
PROVIDERS: ATTEND Internal Medicine Endocrinology, Diabetes & Metabolism
DX: E55.9 Vitamin D deficiency, unspecified (principal); K21.9 Gastro-esophageal reflux disease without esophagitis; F17.200 Nicotine dependence, unspecified, uncomplicated